=== PATIENT | female | born 1990 | race Caucasian/White ===

== ENCOUNTER 2016-10-31 04:28 | Observation (INO) | payer OTHER ==
[2016-10-31] MEDS ORDERED: PROMETHAZINE SUPP 25 MG SUP PR ONE ×2 (04:53→04:55)
[2016-10-31] MEDS ORDERED: SODIUM CHLORIDE 0.9% 1000ML 1,000 ML ONE (04:53)
[2016-10-31] MEDS ORDERED: SODIUM CHLORIDE 0.9% 1000ML 1,000 ML IVS ONE (04:57)
[2016-10-31] MEDS ORDERED: MORPHINE SULFATE INJ 10 MG/ML VIAL ONE (05:51)
[2016-10-31] MEDS ORDERED: MORPHINE SULFATE INJ 10 MG/ML VIAL IV ONE ×3 (05:54→07:55)
--- NOTE | 2016-10-31 06:03 | ED.PDOC ---
History of Present Illness - General Source: patient, family Additional Information: 13 2/7 WKS GESTATION - History of Present Illness Initial Comments: ONSET OF SEVERE ABDOMINAL PAIN Timing/Duration: other - 4 HOURS Severity: moderate Improving Factors: nothing Worsening Factors: nothing Associated Symptoms: nausea/vomiting <Fahad Rivera - Last Filed: 10/31/16 06:38> <CamiloTetomargarita Joaquin - Last Filed: 10/31/16 10:14> - General Chief Complaint: Problem Stated Complaint: LLQ pain, flank pain, N/V, 13 wks gestation Time Seen by Provider: 10/31/16 05:52 - History of Present Illness Allergies/Adverse Reactions: Allergies NO KNOWN ALLERGY Allergy (Verified 10/31/16 04:50) Home Medications: Ambulatory Orders 1 ea PO DAILY 10/31/16 Review of Systems - Review of Systems Constitutional: Denies: chills, fever EENTM: States: no symptoms reported Respiratory: States: no symptoms reported Cardiology: States: no symptoms reported Gastrointestinal/Abdominal: States: abdominal pain, nausea, vomiting Genitourinary: States: other - NO BLEEDING. Denies: discharge, dysuria, frequency, hematuria Musculoskeletal: States: no symptoms reported Skin: Denies: change in color, rash Endocrine: States: no symptoms reported Hematologic/Lymphatic: States: no symptoms reported <Fahad Rivera - Last Filed: 10/31/16 06:38> Past Medical History (General) - Vaccination History Hx Tetanus, Diphtheria Vaccination: No Hx Influenza Vaccination: No Immunizations Up to Date: Yes - Social History Hx Tobacco Use: No Hx Alcohol Use: No - Female History Patient is a Female of Child Bearing Age (10 -59 yrs old): Yes Hx Last Menstrual Period: 08/09/16 Patient : Yes Hx Gestational Age: 13 <Fahad Rivera - Last Filed: 10/31/16 06:38> Family Medical History - Family History Mother Family History: Unknown Living Status: Still Living <Fahad Rivera - Last Filed: 10/31/16 06:38> Physical Exam - Physical Exam General Appearance: Alert, Other - MOD DISTRESS DUE TO PAIN Eye Exam: bilateral normal Ears, Nose, Throat: normal ENT inspection Neck: non-tender, full range of motion, supple Respiratory: lungs clear, normal breath sounds Cardiovascular/Chest: regular rate, rhythm, no murmur Gastrointestinal/Abdominal: soft, no organomegaly, other - GRAVID, MOD LLQ TTP, MILD RLQ TTP, CX CL/TH/ NO BLEEDING, NO GROSS FLUID, [id number] Back Exam: normal inspection, no CVA tenderness Extremity: normal range of motion Neurologic: no motor/sensory deficits Skin Exam: normal color, warm/dry Lymphatic: no adenopathy <Fahad Rivera - Last Filed: 10/31/16 06:38> Progress - Progress Progress: 10/31/16 06:15 D/W DR KIM. RECOMMENDS PAIN CONTROL AND PELVIC ULTRASOUND WHEN TECH ARRIVES THIS AM. 10/31/16 06:38 PT STILL C/O PAIN, STATES NO BETTER BUT CLINICALLY IS IN MUCH LESS DISTRESS, ABDOMEN REMAINS NON SURGICAL, US WILL BE HERE 8AM. WILL REDOSE WITH 1MG MORPHINE AND CONTINUE OBSERVATION <Fahad Rivera - Last Filed: 10/31/16 06:38> - Progress Progress: 10/31/16 08:50 PT COMPLAINS OF RETURN OF PAIN. ADDITIONAL 4MG IV MORPHINE ORDERED. 10/31/16 10:06 PATIENT RE-EVALUATED. CONTINUES TO COMPLAIN OF PAIN. U/S FINDINGS DISCUSSED WITH PT. WILL PLAN TO ADMIT FOR OBSERVATION, PAIN CONTROL AND BOWEL CLEANSING. 10/31/16 10:12 CASE DISCUSSED WITH SURENDRA IN DR. WEINSTEIN OFFICE. U/S FINDINGS RELAYED AND SHE AGREES WITH PLAN FOR ADMISSION, FOR IV ABX, IV PAIN MEDS AND BOWEL CLEANSING. <Sathish Page - Last Filed: 10/31/16 10:14> Departure <Fahad Rivera - Last Filed: 10/31/16 06:38> - Departure Time of Disposition: 10:11 - CASE DISCUSSED WITH CYNTHIA RIVER WHO AGREES TO ADMIT <Sathish Page - Last Filed: 10/31/16 10:14> - Departure Clinical Impression: Abdominal pain during , Acute pyelonephritis in second trimester, antepartum Disposition: Admit Patient Condition: Good Departure Forms: ED Discharge - Pt. Copy, Patient Portal Self Enrollment Home Medications: Ambulatory Orders 1 ea PO DAILY 10/31/16 Decision To Admit - Decistion To Admit Decision to Admit Reason: Admit from ER Decision to Admit Date: 10/31/16 Decision to Admit Time: 10:14 <Sathish Page H - Last Filed: 10/31/16 10:14>
[2016-10-31] MEDS ORDERED: METOCLOPRAMIDE HCL INJ 10 MG/2 ML VIAL IV ONE (06:18)
[2016-10-31] MEDS ORDERED: SODIUM CHLORIDE 0.9% 10 ML VIAL ONE (06:39)
--- NOTE | 2016-10-31 09:05 | US ---
Obstetrical/pelvic sonogram. CLINICAL HISTORY: Left lower quadrant abdomen pain/pelvic pain. 13 week . Evaluate for torsion FINDINGS: Normal appearance of the bilateral ovaries. Normal color Doppler evaluation. No evidence of ovarian torsion. No adnexal mass lesion or free fluid Single viable intrauterine with estimated gestational age 14 weeks 1 days. This is not a detailed anatomic survey. Normal appearance of the amniotic sac, and the anteriorly located placenta. cardiac activity present with rate of 149 bpm. Breech presentation. Normal appearance of the cervix IMPRESSION: No evidence of ovarian torsion Single viable intrauterine with estimated gestational age 14 week 1 day. Not a detailed anatomic survey Electronically signed by: Dale Hoffman MD 10/31/2016 9:03 AM [employer]LE[employer] NETWORK MANAGER
[2016-10-31] MEDS ORDERED: cefTRIAXone SODIUM 1 GM in SODIUM CHL 0.9% 50ML MIN-BAG+ 50 ML IVPB ONE (10:29)
[2016-10-31] MEDS ORDERED: MAGNESIUM CITRATE 300 ML BTTL PO ONE (10:29)
[2016-10-31] MEDS ORDERED: SODIUM CHL 0.9% 50ML MIN-BAG+ 50 ML IVPB ONE (10:42)
[2016-10-31] MEDS ORDERED: cefTRIAXone SODIUM 1 GM VIAL ONE (10:42)
[2016-10-31] MEDS ORDERED: SODIUM CHLORIDE 0.9% (FLUSH) 10 ML SYG IV PRN (15:38)
[2016-10-31] MEDS ORDERED: ACETAMINOPHEN 325 MG TAB ONE (15:39)
[2016-10-31] MEDS ORDERED: ACETAMINOPHEN 325 MG TAB PO PRN (15:41)
[2016-10-31] MEDS ORDERED: IV SET AND CAP CHANGE INJ INJ SCH (16:00)
--- NOTE | 2016-10-31 18:50 | SSS ---
SUPERVISING PHYSICIAN: Marco Taylor M.D. DISCHARGE DIAGNOSES: 1. Nephrolithiasis. 2 Left upper quadrant abdominal pain. 3 14 weeks gestation. CHIEF COMPLAINT: Severe left upper quadrant abdominal pain and left back pain. HISTORY OF PRESENT ILLNESS: This is a 26 year-old female patient who is about 14 weeks . She woke up about 4:00 AM on the date of admission with severe left upper quadrant abdominal pain. It radiated straight through to her back. She tried to get up and walk around as well as she took some Tylenol and she had no relief. It got to the point where she came to the Emergency Room. In the Emergency Room, the sonogram revealed she was about 14 weeks . On her obstetric ultrasound, there was no evidence of ovarian torsion. There is a single viable intrauterine with estimated gestational age of 14 weeks 1 day. In the Emergency Room, she was given some IV fluids as well as some morphine for pain control. Her exam was basically negative. CBC was within normal limits. CMP had a slightly low potassium of 3.3, BUN 6, creatinine 0.53. Urine showed a tract of intact urine blood and urine RBCs were 3 to 5. She was admitted for observation. After admission to the floor, her vital signs were stable. She had been here several hours and she had the sudden urge to urinate. When she urinated into the Speci hat, she felt several clunks in the Speci hat and she had passed several kidney stones. Her pain was pretty much relieved after that, except she did complained of some mild soreness but the pain had completely gone away. At this point, I think she can be discharged home. She has a followup appointment with Dr. Pendleton on the . I have sent the kidney stone for analysis. DISCHARGE PLAN: The patient will be discharged home in stable condition. She is to resume her previous activity. She is to resume her vitamins. She is to take Tylenol as needed for pain and to call Dr. Pendleton's office or to return to the hospital for any further problems. She is to resume her previous diet. DISCHARGE MEDICATIONS: 1. vitamins. Dr. Taylor is the collaborating physician available for consultation. #[id number] [facility]
[2016-10-31 18:52] VITALS: BP 125/80; TEMP 97.5; O2SAT 99
== END 2016-10-31 18:15 | disposition home or self-care (01) ==
LOC: ER 04:28 → MS 10:43
PROVIDERS: ADMIT Family Medicine; ATTEND Nurse Practitioner Acute Care
DX: O26.832 Pregnancy related renal disease, second trimester (principal); N20.0 Calculus of kidney; O99.282 Endocrine, nutritional and metabolic diseases complicating pregnancy, second trimester; E87.6 Hypokalemia; R10.12 Left upper quadrant pain; M54.5 Low back pain; Z3A.14 14 weeks gestation of pregnancy
CPT/HCPCS: 76813; 80053; 81001; 82365; 85025; 87086; 96361; 96365; 96375; 96376; 99284; J0696; J2270 ×3; J2765; J7030; J7050; J8498

== ENCOUNTER → 2019-12-20 | Outpatient (CLI) | payer BC | LOC: GMAJ 15:25 | PROVIDERS: ATTEND Family Medicine | DX: R10.84 Generalized abdominal pain (principal) ==